=== PATIENT | female | born 1985 | race Caucasian/White ===

== ENCOUNTER → 2016-10-09 | Outpatient (CLI) | payer BC ==
[~2016-10-09] MED LIST: ALBUAER19 INH; BUPR150T47 PO; CHOL2000 PO; ETONMIS VAGRING; LEVO150T PO; TOPI50TA16 PO; ZNTT/150 PO
[2016-10-09 17:32] LABS: BASO % 0.3 %; BASO ABS # 0.02 K/uL (0-0.2); COMPLETE YES; EOS % 0.6 %; IG% 0.2 %; LYMPH % 35.6 %; LYMPH ABS # 2.23 K/uL (1.2-3.4); MEAN CELL VOLUME 96.9 fL (80-100); MEAN CORPUSCULAR HEMOGLOBIN 32.6 pg (25-34); MEAN CORPUSCULAR HGB CONC 33.7 g/dl (32-36); MEAN PLATELET VOLUME 12.8 fL (7.4-10.4); NEUT % 59.3 %; PLATELET COUNT 147 K/uL (130-400); RED BLOOD COUNT 4.23 M/uL (4.2-5.4); WHITE BLOOD COUNT 6.26 K/uL (4.8-10.8)
[2016-10-09 19:30] LABS: LYME DISEASE AB IGG NEG (NEG); LYME DISEASE AB IGM NEG (NEG)
[2016-10-09 19:35] LABS: ALT/SGPT 20 U/L (12-78); AST/SGOT 13 U/L (15-37); BLOOD UREA NITROGEN 17 mg/dl (7-18); BUN/CREATININE RATIO 18.7 (10-20); CALCIUM 8.2 mg/dl (8.5-10.1); CARBON DIOXIDE 26 mmol/L (21-32); CHLORIDE 111 mmol/L (98-107); CREATININE 0.92 mg/dl (0.60-1.20); GLUCOSE 71 mg/dl (70-99); POTASSIUM 3.7 mmol/L (3.5-5.1); SODIUM 142 mmol/L (136-145)
[2016-10-09 19:38] LABS: ALKALINE PHOSPHATASE 56 U/L (45-117); RHEUMATOID FACTOR < 10.0 U/mL (0-15)
[2016-10-09 23:47] LABS: RAPID PLASMA REAGIN NONREACTIVE (NONREACT)
[2016-10-14 02:35] LABS: ANTI-CENTROMERE AB <1.0 NEG AI (<1.0 NEG); ANTI-SS-A <1.0 NEG AI (<1.0 NEG); ANTI-SS-B <1.0 NEG AI (<1.0 NEG); DNA ds CRITHIDIA NEGATIVE (NEGATIVE); Sm Antibody <1.0 NEG AI (<1.0 NEG)
== END | disposition home or self-care (01) ==
LOC: C.LABBFT 11:41
PROVIDERS: ATTEND Psychiatry & Neurology Neurology
DX: M54.12 Radiculopathy, cervical region (principal)

== ENCOUNTER → 2016-10-18 | Outpatient (CLI) | payer BC ==
[~2016-10-18] MED LIST changes: +GADAVIST IV PRN
--- NOTE | 2016-10-18 14:07 | DIAGNOSTIC IMAGING REPORT ---
MRI CERVICAL SPINE COMBO CLINICAL HISTORY: Brachial neuritis. Neck pain. Left arm radiculopathy. TECHNIQUE: Sagittal and axial T1, T2 and STIR images were obtained. Imaging was performed before and after the administration of 8.5 cc of intravenous Gadavist COMPARISON STUDY: No previous studies for comparison. There are no suspicious areas of marrow replacement. No intrinsic cervical cord lesions are visualized. C2-3: There is no evidence of disc bulge or focal herniation. There is no spinal or foraminal stenosis. C3-4: There is a very minimal circumference disc bulge. No focal herniations are visualized. There is no spinal or foraminal stenosis. C4-5: There are no disc bulges or focal herniations. There is no spinal or foraminal stenosis. C5-6 :There are no disc bulges or focal herniations. There is no spinal or foraminal stenosis. C6-7: There is no evidence of disc bulge or focal herniation. There is no evidence of spinal or foraminal stenosis. C7-T1: There is no evidence of disc bulge or focal herniation. There is no evidence of spinal or foraminal stenosis. Postcontrast images reveal no areas of pathologic enhancement IMPRESSION: 1. Very minor C3-4 disc bulge 2. No evidence of spinal or foraminal stenosis 3. No cord lesions identified. No evidence of pathologic enhancement Electronically signed by: River Melgar M.D. 10/18/2016 2:06 PM Dictated Date/Time: 10/18/2016 2:02 PM
--- NOTE | 2016-10-18 14:12 | DIAGNOSTIC IMAGING REPORT ---
MRI OF THE BRAIN WITHOUT AND WITH IV CONTRAST CLINICAL HISTORY: Headache, left arm and finger numbness. History of prior abnormal MRI the brain. Demyelinating disease. COMPARISON STUDY: 10/31/2015 TECHNIQUE: MRI of the brain was performed from the vertex to the skull base utilizing various T1 and T2 weighted sequences. Following the IV administration of 8.5 mL of Gadavist contrast, additional enhanced images were obtained. FINDINGS: Sagittal T1, axial diffusion, proton density and T2 weighted axial, coronal FLAIR, and pre and post axial T1-weighted images were acquired. These were supplemented with post gadolinium coronal T1 weighted images. No intra or extra-axial mass lesions are visualized. Axial diffusion-weighted images reveal no evidence of acute or subacute infarction. There is no evidence of ventricular dilatation. Proton density T2-weighted and FLAIR images reveal a few small foci of increased T2 signal within the white matter. These remain essentially stable There are no abnormal flow voids. There is no evidence of pathologic enhancement. IMPRESSION: 1. No evidence of intracranial mass 2. No evidence of acute or subacute infarction 3. There are few stable nonspecific foci of increased T2 signal within the white matter. 4. No evidence of pathologic enhancement Electronically signed by: River Melgar M.D. 10/18/2016 2:10 PM Dictated Date/Time: 10/18/2016 2:06 PM
== END | disposition home or self-care (01) ==
LOC: C.MRI 11:58
PROVIDERS: ATTEND Psychiatry & Neurology Neurology
DX: R51 Headache (principal); R90.89 Other abnormal findings on diagnostic imaging of central nervous system; G37.9 Demyelinating disease of central nervous system, unspecified; M54.12 Radiculopathy, cervical region

== ENCOUNTER → 2017-03-14 | Outpatient (CLI) | payer BC ==
[~2017-03-14] MED LIST changes: -GADAVIST IV PRN
== END | disposition home or self-care (01) ==
LOC: C.LABSPEC 11:02
PROVIDERS: ATTEND Obstetrics & Gynecology
DX: N89.8 Other specified noninflammatory disorders of vagina (principal); Z12.4 Encounter for screening for malignant neoplasm of cervix

== ENCOUNTER → 2017-03-14 | Outpatient (CLI) | payer BC | END | disposition home or self-care (01) | LOC: C.PAPS 11:43 | PROVIDERS: ATTEND Obstetrics & Gynecology | DX: Z12.4 Encounter for screening for malignant neoplasm of cervix (principal) ==

== ENCOUNTER → 2017-06-09 | Outpatient (CLI) | payer BC | END | disposition home or self-care (01) | LOC: C.LABBFT 14:55 | PROVIDERS: ATTEND Nurse Practitioner | DX: E07.9 Disorder of thyroid, unspecified (principal) ==

== ENCOUNTER → 2017-06-13 | Outpatient (CLI) | payer BC ==
[~2017-06-13] MED LIST changes: +RANI150T85 PO; -ZNTT/150 PO
--- NOTE | 2017-06-13 11:22 | DIAGNOSTIC IMAGING REPORT ---
SOFT TISS HEAD/NECK-THYROID CLINICAL HISTORY: 32 years-old Female with E04.1 Thyroid nodule COMPARISON: Thyroid ultrasound 02/24/2015, cervical spine MR 10/18/2016 TECHNIQUE: Multiple real time sonographic images of the thyroid were obtained accessing ortiz scale appearance and color doppler flow. FINDINGS: MEASUREMENTS: Right lobe: 5.2 x 1.9 x 2.0 cm Left lobe: 5.5 x 1.9 x 2.2 cm Isthmus: 0.4 cm PARENCHYMA: The thyroid parenchymal echotexture is generally homogeneous. NODULES: Hypoechoic solid nodule with somewhat ill-defined margins is again seen within the mid pole left thyroid, 0.8 x 0.8 x 0.7 cm, previously measuring 1.0 x 0.7 x 1.0 cm. No associated calcifications or new nodules identified. IMPRESSION: Unchanged hypoechoic nodule of the mid pole left thyroid measuring up to 0.8 cm. No new nodules are identified. The above report was generated using voice recognition software. It may contain grammatical, syntax or spelling errors. Electronically signed by: Ellis Johnson M.D. 06/13/2017 11:21 AM Dictated Date/Time: 06/13/2017 11:18 AM
== END | disposition home or self-care (01) ==
LOC: C.ULTR 10:35
PROVIDERS: ATTEND Nurse Practitioner
DX: E04.1 Nontoxic single thyroid nodule (principal)

== ENCOUNTER → 2017-08-19 | Outpatient (CLI) | payer BC ==
[2017-08-19 17:50] LABS: HEMATOCRIT 42.5 % (37-47); HEMOGLOBIN 14.3 g/dL (12.0-16.0); MEAN CELL VOLUME 95.5 fL (80-100); MEAN CORPUSCULAR HEMOGLOBIN 32.1 pg (25-34); MEAN CORPUSCULAR HGB CONC 33.6 g/dl (32-36); MEAN PLATELET VOLUME 12.6 fL (7.4-10.4); PLATELET COUNT 145 K/uL (130-400); RED CELL DISTRIBUTION WIDTH CV 13.2 % (11.5-14.5); RED CELL DISTRIBUTION WIDTH SD 46.2 fL (36.4-46.3); WHITE BLOOD COUNT 7.27 K/uL (4.8-10.8)
[2017-08-19 18:15] LABS: ALBUMIN 3.5 gm/dl (3.4-5.0); ALT/SGPT 19 U/L (12-78); BLOOD UREA NITROGEN 21 mg/dl (7-18); CALCIUM 8.7 mg/dl (8.5-10.1); CARBON DIOXIDE 26 mmol/L (21-32); GLUCOSE 84 mg/dl (70-99); POTASSIUM 3.7 mmol/L (3.5-5.1); SODIUM 140 mmol/L (136-145)
[2017-08-19 18:25] LABS: ALKALINE PHOSPHATASE 69 U/L (45-117); AST/SGOT 12 U/L (15-37); TOTAL PROTEIN 7.1 gm/dl (6.4-8.2)
== END | disposition home or self-care (01) ==
LOC: C.LABBFT 13:57
PROVIDERS: ATTEND Physician Assistant Medical
DX: R06.02 Shortness of breath (principal)

== ENCOUNTER → 2017-08-21 | Outpatient (CLI) | payer BC | END | disposition home or self-care (01) | LOC: C.LABBFT 12:49 | PROVIDERS: ATTEND Physician Assistant Medical | DX: R06.02 Shortness of breath (principal) ==

== ENCOUNTER → 2017-09-25 | Outpatient (CLI) | payer BC ==
[~2017-09-25] MED LIST changes: +GADAVIST IV PRN
--- NOTE | 2017-09-25 08:48 | DIAGNOSTIC IMAGING REPORT ---
MRA OF THE CHEST/THORACIC AORTA WITH AND WITHOUT CONTRAST CLINICAL HISTORY: Dilated thoracic aorta. Bicuspid aortic valve. COMPARISON STUDY: Chest CT October 14, 2005. TECHNIQUE: Utilizing a 1.5 Ashley magnet and dedicated coil, multiplanar, multi echo imaging of the chest was performed as per the MRA protocol. Injection of 9 cc of Gadavist IV was uneventful. FINDINGS: This exam is mildly compromised by cardiac motion artifact. The thoracic aorta measures approximately 3.6 cm at the level of the sinuses of Valsalva and 3.8 x 3.7 cm at the level of the main pulmonary artery. Caliber of the thoracic aorta has slightly increased since chest CT of October 14, 2005. The caliber of the aortic arch and descending thoracic aorta is normal. There is no dissection within the thoracic aorta. The size the heart is at the upper limits of normal. There is no pericardial effusion. Proximal great vessels are patent. No enlarged thoracic lymph nodes are identified. Lungs are somewhat assessed by MRI but appear unremarkable. There is no pleural effusion. IMPRESSION: Top normal caliber ascending aorta, measuring 3.8 x 3.7 cm at the level of the main pulmonary artery and approximately 3.6 cm at the level of the sinuses of Valsalva. Slight increase in thoracic aortic diameter since exam of September 24, 2005. No thoracic aortic dissection. Electronically signed by: Alon Marino M.D. 09/25/2017 8:46 AM Dictated Date/Time: 09/25/2017 8:07 AM
== END | disposition home or self-care (01) ==
LOC: C.MRI 07:01
PROVIDERS: ATTEND Internal Medicine Cardiovascular Disease
DX: Q23.1 Congenital insufficiency of aortic valve (principal); R07.9 Chest pain, unspecified

== ENCOUNTER → 2017-10-07 | Outpatient (CLI) | payer BC ==
[~2017-10-07] MED LIST changes: -GADAVIST IV PRN; +OPTIRAY 320 IV PRN
--- NOTE | 2017-10-07 16:44 | DIAGNOSTIC IMAGING REPORT ---
CT ANGIOGRAM OF THE CHEST CLINICAL HISTORY: Left-sided chest pain. Dyspnea on exertion. COMPARISON STUDY: MRI of the chest dated September 25, 2017 TECHNIQUE: Following the IV administration of 94 mL of Optiray-320, CT angiogram of the thorax was performed from the thoracic inlet to the lung bases utilizing the pulmonary embolus protocol. Images are reviewed in the axial, sagittal, and coronal planes. IV contrast was administered without complication. MIP imaging was performed. A dose lowering technique was utilized adhering to the principles of ALARA. CT DOSE: 272.89 mGy.cm FINDINGS: No pathologically enlarged axillary mediastinal or hilar lymph nodes were visualized. There is mild ectasia of the ascending thoracic aorta, unchanged the prior study. There were no pulmonary artery filling defects to indicate acute pulmonary embolism. No pleural effusions are visualized. There was no evidence of focal pulmonary consolidation. IMPRESSION: 1. No evidence of acute pulmonary embolism 2. No evidence of focal pulmonary consolidation 3. Mild ectasia of the ascending thoracic aorta Electronically signed by: River Melgar M.D. 10/07/2017 4:43 PM Dictated Date/Time: 10/07/2017 4:37 PM
== END | disposition home or self-care (01) ==
LOC: C.CTS 16:10
PROVIDERS: ATTEND Nurse Practitioner
DX: R06.09 Other forms of dyspnea (principal); R07.9 Chest pain, unspecified

== ENCOUNTER 2019-05-28 05:40 | Inpatient (IN) ==
--- NOTE | 2019-05-27 18:22 | History and Physical Report ---
DATE OF ADMISSION: 05/28/2019 DATE OF PLANNED SURGERY: 05/28/2019. PREOPERATIVE DIAGNOSES: 1. Intrauterine at 39 and 5/7th weeks. 2. History of previous section, desires repeat. 3. Mild aortic stenosis of bicuspid valve and mild ascending aortic dilation 4. History of PVCs. 5. Asthma. 6. Uninformative DNA on panorama screen. Normal amniocentesis per [facility]. 7. Desires permanent surgical sterilization. HISTORY: The patient is a 2, para 1-0-0-1 with a at 39+ weeks who presents for repeat section. Her previous was delivered in 2007. She delivered a 9 pound baby and had a section for failure to progress/cephalopelvic disproportion after she pushed for 2-1/2 hours. The patient declines trial of labor. She has good movement, no contractions or labor symptoms. This has been complicated by PVCs with palpitations and tachycardia. She had an event monitor with cardiology in February and March showing sinus rhythm and sinus tachycardia without arrhythmia and some occasional PVCs, but no intervention was recommended. The patient was seen at the [facility] for a echo given her abnormalities and the baby's heart was normal. She last saw Dr. Romero in August of this year. The aortic stenosis appears to be mild. With her mild ascending aortic dilation, the recommendation was to avoid strenuous lifting for which the Valsalva maneuver is required. At that time she discontinued her beta brittany in attempt to become and at that time, she was recommended to follow up on an annual basis or sooner for questions or concerns. It appears her last scheduled MRA was in 09/2014 showing the thoracic aorta measuring approximately 3.6 cm at the level of the sinuses of Valsalva and 3.8 x 3.7 cm at the level of the main pulmonary artery. Her last echo was in October of 2018 and was stable compared to one done the year before. It does not appear that the patient has been seen by a metal sprayer production since that time but she did have the evaluation for the PVCs and 30-day Holter monitor. Other than the PVCs, she has not had any cardiac issues in this . She notes some shortness of breath that she attributes to . Her asthma has been stable. although another MRA was recommend in 2 months after her cardiology visit in 09/08, it does not appear to have been performed. ALLERGIES: PROVIGIL TABLETS CAUSING IRRITABILITY AND TACHYCARDIA. OTHER ALLERGIES: ADHESIVE TAPE CAUSING REDNESS TO THE SKIN AND MODAFINIL CAUSING ANXIETY AND TACHYCARDIA. CURRENT MEDICATIONS: Include vitamin D3, iron and vitamin. PAST MEDICAL HISTORY: Consistent with her heart issues as above, GERD, asthma, vitamin D deficiency, goiter with thyroid nodule, obesity, restless leg syndrome, positive EPIFANIO, history of depression on no current meds, history of migraines, history of chickenpox. PAST SURGICAL HISTORY: Winner teeth, , laparoscopic cholecystectomy. SOCIAL HISTORY: The patient denies current tobacco, alcohol or drug use. She lives with the father of the baby and her son. PHYSICAL EXAMINATION: GENERAL: This is a well-developed, well-nourished, obese female in no acute distress. VITAL SIGNS: Blood pressure 110/86, weight 264.9 pounds. CHEST: Clear to auscultation bilaterally. CARDIOVASCULAR: Regular rate and rhythm. ABDOMEN: Soft, , nontender. EXTREMITIES: Show some trace edema but are otherwise benign. LABORATORY DATA: Blood type O positive, antibody negative, rubella immune, RPR nonreactive, hepatitis B negative, HIV negative, chlamydia and gonorrhea negative. Glucose tolerance test x2 normal. She had abnormal panorama but then subsequently had an amniocentesis showing a normal 46 XX karyotype. Declined AFP. Group B strep negative. ASSESSMENT: Fern is a 34-year-old white female 2, para 1-0-0-1, with a history of a previous section for failure to progress and CPD after pushing for 2-1/2 hours in 2007. She presents today at 39 and 6/7th weeks for repeat section. Her history is complicated by a bicuspid aortic valve with mild aortic stenosis and mild thoracic aorta dilation as well as intermittent PVCs with sinus tachycardia on a 30-day Holter monitor. Her cardiac issues of not been an issue in this and she has not been on any medications. Discussed this patient with Dr. Guevara, and he feels she does not have significant increased risk with surgical delivery, and in fact, this is probably in her best interest instead of a vaginal delivery given her history. She had an abnormal panorama but normal 46 XX karyotype on amniocentesis. She presents today for repeat section and desires permanent surgical sterilization. The risks of surgery were discussed with the patient including the risks of anesthesia, bleeding requiring transfusion, infection, poor wound healing, damage to surrounding structures including bowel, bladder, vessels, nerves and ureters with need for further surgery, hospitalization or intervention. We discussed the other risks associated with surgery including heart attack, blood clot, stroke or . Additionally, the patient desires permanent surgical sterilization. We discussed the risks of sterilization including the risk of failure resulting in ectopic and regret. We discussed the other options for control including barriers, hormones, long-term reversible contraception and vasectomy. She understands that this procedure is permanent and declines other methods of control. Consent was reviewed and signed and surgery is planned for 05/28/2019. TAJ
[2019-05-28] MEDS ORDERED: SODIUM CHLORIDE 0.9% 250 ML IV PRN (05:42)
[2019-05-28] MEDS ORDERED: LACTATED RINGER'S 1,000 ML IV SCH ×2 (05:45→06:38)
[2019-05-28] MEDS ORDERED: CITRIC ACID/SODIUM CITRATE 15 ML UDC PO SCH (06:00)
[2019-05-28 06:10] LABS: Basophils # (auto) 0.02 K/uL (0-0.2); Basophils % (auto) 0.2 %; Eosinophils # (auto) 0.21 K/uL (0-0.5); Eosinophils % (auto) 2.4 %; Hematocrit (blood only) 35.4 % (37-47); Hemoglobin 11.6 g/dL (12.0-16.0); Immature Granulocytes # (auto) 0.03 K/uL (0.00-0.02); Immature Granulocytes % (auto) 0.3 %; Lymphocytes # (auto) 2.31 K/uL (1.2-3.4); Lymphocytes % (auto) 25.9 %; Mean Corpuscular Hemoglobin 30.5 pg (25-34); Mean Corpuscular Volume 93.2 fL (80-100); Mean Platelet Volume 12.2 fL (7.4-10.4); Monocytes # (auto) 0.54 K/uL (0.11-0.59); Neutrophils # (auto) 5.82 K/uL (1.4-6.5); Neutrophils % (auto) 65.2 %; Platelet Count 153 K/uL (130-400); RDW Coefficient of Variation 13.2 % (11.5-14.5); White Blood Count 8.93 K/uL (4.8-10.8)
[2019-05-28 06:17] LABS: Mean Corpuscular Hgb Conc 32.8 g/dL (32-36)
[2019-05-28] MEDS ORDERED: MoRPHine SULFATE PF 1 MG/ML 10 ML AMP/VIAL ONE (07:00)
[2019-05-28] MEDS ORDERED: fentaNYL citrate 100 MCG/2 ML VIAL ONE (07:00)
--- NOTE | 2019-05-28 07:09 | Anesthesiology Consultation ---
Date of Service May 28, 2019 Assessment & Plan (1) Encounter for pre-operative examination: Chart Review Chart Review: Acceptable Risk for Surgery and Patient NOT seen in Pre Admission Testing Consults Requested none History Surgery Operation Date: 05/28/19 07:30 Proposed Procedures p Section with - Angella Aguillon MD, FACOG s Post Tubal Ligation in LD - Angella Aguillon MD, FACOG Height/Weight Height: 5 ft 6 in Weight: 117.934 kg Allergies Allergy/AdvReac Type Severity Reaction Status Date / Time modafinil Allergy Intermediate Anxiety, Verified 05/27/19 08:59 tachycardia adhesive tape Allergy Mild REDNESS TO Verified 05/27/19 08:59 SKIN Provigil TABS Allergy Intermediate ANXIETY, Uncoded 05/14/19 10:12 TACHYCARDIA Medications Home Medications Medication Instructions Recorded Confirmed Last Taken prenat.vits,renee,tll-qtnt-clizm 1 tab PO DAILY 01/28/19 05/27/19 Unknown cholecalciferol (vitamin D3) 25 2,000 units PO DAILY cap 02/18/19 05/27/19 Unknown mcg (1,000 unit) capsule ferrous sulfate [iron] 325 mg PO 3XWK 05/14/19 05/27/19 Unknown Active Medications Generic Name Dose Route Start Last Admin Trade Name Freq PRN Reason Stop Dose Admin Lactated Ringer's 1,000 mls @ 125 mls/hr 05/28/19 06:38 05/28/19 07:14 Lr IV 06/27/19 06:37 125 mls/hr .Q8H TREMAYNE Administration Cefazolin Sodium 65 mls @ 130 mls/hr 05/29/19 06:00 05/28/19 07:14 Ancef 3000mg IV 05/30/19 05:59 130 mls/hr PREOP TREMAYNE Administration NPO Date Last Intake of Fluids: 05/27/19 Time Last Intake of Fluids: 22:00 Date Last Intake of Solids: 05/27/19 Time Last Intake of Solids: 22:00 Past Medical History Medical History Aortic stenosis Bicuspid aortic valve Brachial neuritis LEFT SIDE Cardiac murmur GERD (gastroesophageal reflux disease) History of anxiety History of asthma NO ACTIVE INHALER Hx of pancreatitis Kidney stones Migraine with aura Rectal bleeding ? HEMORRHOID (DR. ROMAN AWARE) Temporomandibular joint disorder Thyroid nodule "SCARRING" BEING MONITORED Exercise / Class Metabolic Activity II 4-5 Yardwork/Stairs/Walk up hill Past Family History Family History Mother Deep vein thrombosis Hypertension Asthma Grandmother (Paternal) Diabetes Heart disease Hypertension Grandmother (Maternal) Breast cancer Grandfather (Paternal) Rheumatoid arthritis Myocardial infarction Lung cancer Father Diabetes Aunt Diabetes Past Surgical History Surgical History History of cholecystectomy History of tooth extraction WISDOM TEETH AND TOOTH #19 S/P section X 1 Past Anesthesia History No Hx of Anesthesia Complications and No Family Hx of Anesthesia Complications History of PONV No Hx of PONV and No Hx of Motion Sickness Social History Smoking Status: Former smoker tobacco type: cigarettes Do You Dip or Chew Tobacco: No Smoking End Date: 11 YEARS AGO Hx Alcohol Use: No Hx Substance Use: No substance use type: does not use Physical Exam Vital Signs Last Vital Signs Temp 36.6 C 05/28/19 06:04 Pulse 81 05/28/19 07:17 Resp 18 05/28/19 06:04 BP 123/82 05/28/19 07:16 Pulse Ox 98 05/28/19 07:17 Testing Laboratory Results 05/28/19 05:56 Blood Type O Positive 05/28/19 05:56 Antibody Screen POSITIVE A 05/28/19 05:56
--- NOTE | 2019-05-28 07:19 | History & Physical Bridge Note ---
Date of Service May 28, 2019 History & Physical Bridge Note I have examined the patient, reviewed the History & Physical and in the interval since the performance of the History & Physical I have noted the following changes of clinical significance: no changes noted
[2019-05-28] MEDS ORDERED: OXYTOCIN 10 UNITS/ML VIAL ONE (07:51)
[2019-05-28] MEDS ORDERED: PHENYLEPHRINE HCL 10 MG/ML VIAL ONE (07:51)
[2019-05-28] MEDS ORDERED: PHENYLEPHRINE 100MCG/ML 5ML SYR ONE (07:51)
[2019-05-28] MEDS ORDERED: ONDANSETRON INJ 2 MG/ML 2 ML VIAL ONE (07:51)
[2019-05-28] MEDS ORDERED: NALOXONE HCL 1 MG in SODIUM CHLORIDE 0.9% 1000ML 1,000 ML IV PRN (08:01)
[2019-05-28] MEDS ORDERED: NALOXONE HCL 0.08 MG in SYRINGE 1.8 ML IV PRN (08:01)
[2019-05-28] MEDS ORDERED: ePHEDrine sulfate 50 MG/ML AMP IV PRN (08:01)
[2019-05-28] MEDS ORDERED: LACTATED RINGER'S 500 ML IV PRN (08:01)
[2019-05-28] MEDS ORDERED: ONDANSETRON INJ 2 MG/ML 2 ML VIAL IV PRN (08:01)
[2019-05-28] MEDS ORDERED: DiphenhydrAMINE HCL 50 MG/ML VIAL IV PRN (08:01)
[2019-05-28] MEDS ORDERED: MoRPHine SULFATE PF 1 MG/ML 10 ML AMP/VIAL INT SPINAL ONE (08:01)
[2019-05-28] MEDS ORDERED: MoRPHine SULFATE 2 MG/ML CARP IV PRN (08:01)
[2019-05-28] MEDS ORDERED: NALBUPHINE HCL INJ 10 MG/ML AMP IV PRN (08:01)
[2019-05-28] MEDS ORDERED: NALOXONE HCL 0.4 MG/1 ML VIAL/CARP IV PRN (08:01)
[2019-05-28] MEDS ORDERED: HYDROmorphone INJ 0.5 MG/0.5 ML SYR IV PRN (08:01)
[2019-05-28] MEDS ORDERED: DC INTRASPINAL MORPHINE SCH (08:15)
[2019-05-28] MEDS ORDERED: NO NARCOTICS OR SEDATIVES SCH (08:15)
[2019-05-28] MEDS ORDERED: SODIUM CHLORIDE 0.9% 1000ML 1,000 ML IV SCH (08:15)
--- NOTE | 2019-05-28 08:32 | Post Operative Brief Note ---
PG Immediate Post Op with CF Date of Surgery May 28, 2019 Pre & Post Diagnosis Operation Date: 05/28/19 07:30 Pre-Op Diagnosis: History of Section, Desires sterilization Post-Op Diagnosis: Same; Delivery of a live female child at 0755 I identified the patient and participated in the time-out.: Yes Procedure Operation Date: 05/28/19 07:30 repeat lower transverse Bilateral modified tonya tubal ligation Surgeon Angella Aguillon MD, FACOG Manager Location Dr. Angulo, PGY1, Katia Gross, MS 2 Estimated Blood Loss 600 Findings Consistent with Post-Op Diagnosis Specimens Specimen Description: A. placenta-hold B.portions of right and left fallopian tubes C. cord blood Drains Lee Catheter
--- NOTE | 2019-05-28 08:47 | Anesthesiology Progress Note ---
Date of Service May 28, 2019 Anesthesia Post Procedure Vital Signs Vital Signs: Temp Pulse Resp BP Pulse Ox 05/28/19 08:43 92 H 95 05/28/19 08:39 78 121/66 05/28/19 08:38 85 96 05/28/19 07:17 81 98 05/28/19 07:16 74 123/82 05/28/19 06:04 36.6 C 18 05/28/19 05:52 82 121/83 05/28/19 05:51 36.6 C 18 Transfer of Care Handoff Completed per policy Notes Mental Status: alert / awake / arousable and participated in evaluation Patient Amnestic to Procedure: No Nausea / Vomiting: adequately controlled Pain: adequately controlled Airway Patency, RR, SpO2: stable & adequate BP & HR: stable & adequate Hydration State: stable & adequate Neuraxial Anesthesia: was administered and sensory block is resolving Anesthetic Complications: no major complications apparent and Pt Satisfied with anesthetic care
--- NOTE | 2019-05-28 09:06 | Operative Report ---
DATE OF OPERATION: 05/28/2019 PREOPERATIVE DIAGNOSES: 1. Intrauterine at 39 and 6/7 weeks. 2. History of previous section, desires repeat. 3. Desires permanent surgical sterilization. 4. Mild aortic stenosis and mild dilation of the ascending thoracic aorta. POSTOPERATIVE DIAGNOSES: 1. Intrauterine at 39 and 6/7 weeks. 2. History of previous section, desires repeat. 3. Desires permanent surgical sterilization. 4. Mild aortic stenosis and mild dilation of the ascending thoracic aorta. PROCEDURE: 1. Repeat lower transverse section. 2. Bilateral modified [place] tubal ligation. SURGEON: Angella Aguillon MD GRIT BLASTER: González Angulo, PGY1 and Katia Gross, MS2. ANESTHESIA: Spinal. ESTIMATED BLOOD LOSS: 600 mL. FLUIDS: 1250 mL. URINE OUTPUT: 100 mL of concentrated urine drained from the bladder at the end of the procedure. INDICATIONS: Fern is a 34-year-old white female 2, para 1-0-0-1, whose previous delivery was in 2007. This was a section for CPD and failure to progress after pushing for 2-1/2 hours to deliver a 9+ pound baby. The patient does not desire trial of labor and in fact given her mild aortic stenosis, this is probably in her better interest to proceed with repeat section. Additionally, the patient desires tubal ligation, has been counseled about her options including long-term reversible contraceptive options and vasectomy. She understands that this is permanent and that she may have regret. FINDINGS: Viable female in cephalic presentation with a loose nuchal body cord. Apgars were 8 and 9, clear fluid on rupture of the amniotic sac. Normal uterus, tubes, and ovaries were noted bilaterally. COMPLICATIONS: None. DRAINS: Lee. DISPOSITION: To recovery room in stable condition. DESCRIPTION OF PROCEDURE: The patient was taken to the operating room where she was identified verbally and by bracelet. She was seated on the operating table where spinal anesthetic was placed by anesthesia without difficulty. She was then placed in dorsal supine position with leftward tilt. A Lee catheter was placed sterilely and she was prepped and draped in normal sterile fashion. Her anesthetic was tested and found to be adequate. A time-out was held identifying correct patient, procedure, positioning, preoperative antibiotic. There were no concerns. A Pfannenstiel skin incision was made with a knife and taken down to the underlying layer of fascia with the knife. Bleeding was attended to with Bovie electrocautery. The fascia was incised in the midline with the knife and taken out laterally with scissors. Superior edge of the fascial incision was grasped, elevated and the underlying layer of rectus muscle was taken off bluntly and with scissors. In a similar fashion, the inferior edge of the fascial incision was grasped, elevated and the underlying layer of rectus muscle was taken off bluntly and with scissors. The muscles were well reapproximated. The midline was incised with the knife and then bluntly. The muscles were . The peritoneum was then identified, grasped with snaps bilaterally and entered sharply with scissors. There were no adhesions noted under the peritoneum. The peritoneum was then taken superiorly and inferiorly with good visualization of the bladder. The incision was stretched, the bladder blade was placed. The vesicouterine peritoneum was identified, grasped with a snap and entered with scissors and taken out laterally with scissors. The bladder blade was created digitally. The hysterotomy incision was scored with the knife. It was entered with the labelling machine operator's fingers and stretched with the labelling machine operator's fingers. The amniotic sac was then entered for clear fluid. The labelling machine operator's hand was placed into the uterus and attempts to deliver the head through the hysterotomy incision were tight. The labelling machine operator's hand was removed and a vacuum was called for but then we found that with just some pressure, the head was delivered through the hysterotomy incision. The nose and mouth were bulb suctioned. There was a loose nuchal/body cord which the baby was delivered through. The baby was immediately vigorous and crying after delivery. The nose and mouth were again bulb suctioned. The cord was clamped and cut and the was handed off to waiting box liner for drying and attention. Cord blood and segment were obtained. Placenta was manually extracted. The uterus was exteriorized and cleared of all clot and debris with moistened laparotomy sponges. Hysterotomy incision was repaired in 2 layers, the first in a running locked layer of 0 Vicryl, the second in an imbricating layer of 0 Vicryl. Attention was then turned to the tubes for sterilization. First on the right and then on the left, the tube was grabbed with a Coffey. Using 2-0 plain gut suture, a knuckle of tube was tied. A 2-0 plain gut was placed below this. The tube was excised with scissors and the base was attended to with Bovie electrocautery. This was repeated exactly the same way on the left side. Tubal stumps were noted to be hemostatic. The hysterotomy incision was again inspected. Some oozing at the midline was attended to with 1 [id number] suture of 0 Vicryl and then hemostasis was noted to be good. The uterus was reanteriorized. The bladder blade was replaced. The hysterotomy incision was again inspected and found to be intact. The tubal stumps were hemostatic and intact. The rectus muscles were reapproximated in the midline with several interrupted sutures of 0 Vicryl. The fascia was then approximated with 0 Vicryl starting and the corners are meeting in the midline. The subcuticular tissue was copiously irrigated and was hemostatic. Three horizontal mattress sutures of 2-0 plain gut were used to close the space and the skin was then closed with 4-0 Vicryl in subcuticular fashion. All sponge, lap and needle counts were correct x2. The patient tolerated the procedure well and was taken to recovery room in stable condition. I attest to the content of the Intraoperative Record and any orders documented therein. Any exception s are noted below.
[2019-05-28] MEDS ORDERED: HYDROCORTISONE ACETATE 25 MG SUPP PR PRN (10:23)
[2019-05-28] MEDS ORDERED: BENZOCAINE 20% AER SPR 82.5 GM CAN EXT PRN (10:23)
[2019-05-28] MEDS ORDERED: SUPERCREAM 0.870% 15 GM JAR EXT PRN (10:23)
[2019-05-28] MEDS ORDERED: MAGNESIUM HYDROXIDE SUSP 30 ML UDC PO PRN (10:23)
[2019-05-28] MEDS ORDERED: DIPHTHERIA/TETANUS/PERTUSSIS 0.5 ML SYR/VIAL IM ONE (10:23)
[2019-05-28] MEDS ORDERED: SENNA 8.6 MG TAB PO PRN (10:23)
[2019-05-28] MEDS: OXYTOCIN 20 UNITS in LACTATED RINGER'S 1,000 ML IV SCH ×2 (11:30→19:01)
[2019-05-28] MEDS: KETOROLAC 30 MG/ML VIAL IV PRN ×2 (11:41→17:55)
[2019-05-28] MEDS: SIMETHICONE 80 MG CHEW PO SCH ×3 (12:53→20:37)
[2019-05-28] MEDS: DOCUSATE SODIUM 100 MG CAP PO SCH (20:37)
[2019-05-29] MEDS: KETOROLAC 30 MG/ML VIAL IV PRN (00:19)
[2019-05-29] MEDS ORDERED: DiphenhydrAMINE HCL 50 MG/ML VIAL IV PRN (02:01)
[2019-05-29] MEDS ORDERED: KETOROLAC 30 MG/ML VIAL IV PRN (02:01)
[2019-05-29] MEDS ORDERED: MEPERIDINE HCL 50 MG/ML CARP IV PRN (02:01)
[2019-05-29] MEDS: IBUPROFEN 600 MG TAB PO PRN ×3 (05:56→21:45)
[2019-05-29] MEDS ORDERED: CEFAZOLIN 3000MG 65 ML IV SCH (06:00)
--- NOTE | 2019-05-29 06:20 | Obstetrical Progress Note ---
Date of Service <González Angulo MD - Last Filed: 05/29/19 06:22> May 29, 2019 Assessment & Plan <González Angulo MD - Last Filed: 05/29/19 06:22> (1) : RLTCS POD#1 doing well, ambulating well, tolerating foods continue routine care until discharge after discharge will have follow-up in 6 weeks Subjective <González Angulo MD - Last Filed: 05/29/19 06:22> Ms. Glover is a 34 y/o female ; POD #1 following delivery at 39+ weeks; doing well this morning; having minimal abdominal cramping/pain; voiding well; tolerating meals overnight; and able to ambulate some Review of Systems Constitutional: denies fever; chills; sweats; headache Respiratory: denies shortness of breath, difficulty breathing Cardiac: denies chest pain; palpitations; chest pressure Breast: denies breast pain : denies dysuria Physical Exam <González Angulo MD - Last Filed: 05/29/19 06:22> General: alert; oriented; no acute distress Cardiac: RRR; no m/g/r Respiratory: CTAB a/p; no wheezes/rales/rhonchi; no increased work of breathing; symmetrical chest rise; no respiratory distress Abdomen: soft; NT/ND; bowel sounds positive Uterus: uterine fundus firm; palpable 2cm below umbilicus Lower extrem: no lower extremity edema or swelling; no deep calf pain; Angelica's sign negative b/l Results & Data <González Angulo MD - Last Filed: 05/29/19 06:22> Vital Signs (Past 12 Hours) Vital Signs Temp Pulse Resp BP Pulse Ox 05/29/19 04:10 36.6 C 80 18 99/63 L 97 05/29/19 02:05 16 95 05/29/19 01:20 18 96 05/29/19 00:20 18 97 05/28/19 23:30 36.5 C 80 18 96/63 L 96 05/28/19 19:35 36.7 C 64 18 99/59 L 97 05/28/19 19:00 16 97 Laboratory Results 05/28/19 Range/Units 05:56 Blood Type O Positive Antibody Screen POSITIVE A Antibody Identification Anti-E Antibody ID Comment Antigen Identification E Antigen - NEGATIVE Crossmatch See Detail Medications Administered Current Inpatient Medications Benzocaine (Dermoplast Pain Relieving [place]) 1 appln EXT UD PRN PRN Reason: use on skin as needed Stop: 06/27/19 10:22 Bisacodyl (Dulcolax) 5 mg PO 1999 [facility] Stop: 05/29/19 20:01 Cocaine HCl (Supercream 0.870%) 1 gm EXT UD PRN PRN Reason: hemmorrhoidal inflammation Stop: 06/11/19 10:22 Diphenhydramine HCl (Benadryl Capsule) 25 mg PO QID PRN PRN Reason: Itching Stop: 06/28/19 02:00 Diphenhydramine HCl (Benadryl) 25 mg IV QID PRN PRN Reason: Itching Stop: 06/28/19 02:00 Docusate Sodium (Colace) 100 mg PO DAILY@, [facility] Stop: 06/27/19 20:59 Last Admin: 05/28/19 20:37 Dose: 100 mg Documented by: Ferrous Sulfate (Feosol) 325 mg PO DAILY@08 [facility] Stop: 06/28/19 07:59 Hydrocortisone (Anusol Hc) 25 mg DC BID PRN PRN Reason: Hemorrhoids Stop: 06/27/19 10:22 Ibuprofen (Motrin) 600 mg PO Q4H PRN PRN Reason: Pain Stop: 06/27/19 10:22 Last Admin: 05/29/19 05:56 Dose: 600 mg Documented by: Ketorolac Tromethamine (Toradol) 30 mg IV Q6H PRN PRN Reason: Pain Stop: 06/03/19 02:00 Magnesium Hydroxide (Milk Of Magnesia) 30 ml PO HS PRN PRN Reason: Constipation Stop: 06/27/19 10:22 Meperidine HCl (Demerol) 50 - 75 mg IV Q4H PRN PRN Reason: Pain Stop: 06/12/19 02:00 Oxycodone/Acetaminophen (Percocet 5mg/325mg) 1 - 2 tab PO Q4H PRN PRN Reason: Pain Stop: 06/12/19 02:00 Prenat Multivit/Expander/Iron/Folic Ac ( Vitamin) 1 tab PO DAILY@08 [facility] Stop: 06/28/19 07:59 Sennosides (Senokot) 17.2 mg PO HS PRN PRN Reason: Constipation Stop: 06/27/19 10:22 Simethicone (Mylicon) 80 mg PO DAILY@08,13,17,21 [facility] Stop: 06/27/19 12:59 Last Admin: 05/28/19 20:37 Dose: 80 mg Documented by: <Josie Rabago MD - Last Filed: 05/29/19 07:11> Co-Signing Physician Notes I have reviewed the resident's note and examined the patient myself, and agree with the note above. Resident Activity Tracking <González Angulo MD - Last Filed: 05/29/19 06:22> Resident Involvement: Resident Care Provided Care Provided: OB Delivery
[2019-05-29 07:31] LABS: Basophils # (auto) 0.02 K/uL (0-0.2); Basophils % (auto) 0.2 %; Eosinophils % (auto) 1.8 %; Hematocrit (blood only) 29.5 % (37-47); Hemoglobin 9.6 g/dL (12.0-16.0); Immature Granulocytes # (auto) 0.02 K/uL (0.00-0.02); Immature Granulocytes % (auto) 0.2 %; Lymphocytes # (auto) 1.94 K/uL (1.2-3.4); Lymphocytes % (auto) 17.5 %; Mean Corpuscular Hemoglobin 30.5 pg (25-34); Mean Corpuscular Hgb Conc 32.5 g/dL (32-36); Mean Corpuscular Volume 93.7 fL (80-100); Mean Platelet Volume 12.3 fL (7.4-10.4); Monocytes # (auto) 0.47 K/uL (0.11-0.59); Monocytes % (auto) 4.2 %; Neutrophils # (auto) 8.46 K/uL (1.4-6.5); Neutrophils % (auto) 76.1 %; Platelet Count 119 K/uL (130-400); Platelet Estimate Normal (Normal); RDW Coefficient of Variation 13.4 % (11.5-14.5); RDW Standard Deviation 45.5 fL (36.4-46.3); Red Blood Count 3.15 M/uL (4.2-5.4); White Blood Count 11.11 K/uL (4.8-10.8)
--- NOTE | 2019-05-29 08:33 | Anesthesiology Progress Note ---
Date of Service May 29, 2019 Anesthesia Post Procedure Vital Signs Vital Signs: Temp Pulse Pulse Pulse Resp BP BP 05/29/19 07:45 36.8 C 73 18 05/29/19 04:10 36.6 C 80 18 99/63 L 05/29/19 02:05 16 05/29/19 01:20 18 05/29/19 00:20 18 05/28/19 23:30 36.5 C 80 18 96/63 L 05/28/19 19:35 36.7 C 64 18 99/59 L 05/28/19 19:00 16 05/28/19 18:02 16 05/28/19 17:00 18 05/28/19 16:35 20 05/28/19 15:50 36.4 C L 66 18 103/69 05/28/19 15:00 18 05/28/19 14:00 20 05/28/19 13:00 18 05/28/19 11:50 36.3 C L 68 18 111/62 05/28/19 11:36 79 05/28/19 11:35 72 111/62 05/28/19 11:33 70 05/28/19 11:29 82 108/65 05/28/19 11:28 85 05/28/19 11:27 79 05/28/19 11:23 65 05/28/19 11:19 75 113/67 05/28/19 11:18 70 05/28/19 11:13 68 05/28/19 11:09 68 114/70 05/28/19 11:08 69 05/28/19 11:07 78 05/28/19 11:03 73 05/28/19 10:59 80 108/66 05/28/19 10:58 74 05/28/19 10:53 61 05/28/19 10:49 59 L 111/69 05/28/19 10:48 60 05/28/19 10:43 68 05/28/19 10:40 18 05/28/19 10:39 76 120/86 05/28/19 10:38 79 05/28/19 10:33 78 05/28/19 10:29 71 110/81 05/28/19 10:28 75 05/28/19 10:23 77 05/28/19 10:19 81 111/62 05/28/19 10:18 79 05/28/19 10:13 72 05/28/19 10:10 18 05/28/19 10:09 82 118/63 05/28/19 10:08 77 05/28/19 10:03 77 05/28/19 09:59 82 132/69 05/28/19 09:58 82 05/28/19 09:55 83 05/28/19 09:53 87 05/28/19 09:49 91 H 136/67 05/28/19 09:48 89 05/28/19 09:43 92 H 05/28/19 09:40 18 05/28/19 09:39 74 122/58 L 05/28/19 09:38 83 05/28/19 09:33 89 18 05/28/19 09:29 77 108/56 L 05/28/19 09:28 83 05/28/19 09:23 85 05/28/19 09:20 18 05/28/19 09:19 83 115/61 05/28/19 09:18 127 H 05/28/19 09:17 96 H 05/28/19 09:13 87 05/28/19 09:10 18 05/28/19 09:09 92 H 122/71 05/28/19 09:08 90 05/28/19 09:03 99 H 05/28/19 09:00 18 05/28/19 08:59 96 H 122/95 05/28/19 08:58 95 H 05/28/19 08:53 97 H 05/28/19 08:50 18 05/28/19 08:48 93 H 05/28/19 08:43 92 H 05/28/19 08:40 36.4 C L 18 05/28/19 08:39 78 121/66 05/28/19 08:38 85 BP Pulse Ox Pulse Ox 05/29/19 07:45 103/65 97 05/29/19 04:10 97 05/29/19 02:05 95 05/29/19 01:20 96 05/29/19 00:20 97 05/28/19 23:30 96 05/28/19 19:35 97 05/28/19 19:00 97 05/28/19 18:02 99 05/28/19 17:00 98 05/28/19 16:35 98 05/28/19 15:50 97 05/28/19 15:00 98 05/28/19 14:00 99 05/28/19 13:00 100 05/28/19 11:50 99 99 05/28/19 11:36 94 05/28/19 11:35 05/28/19 11:33 100 05/28/19 11:29 05/28/19 11:28 98 05/28/19 11:27 91 05/28/19 11:23 99 05/28/19 11:19 05/28/19 11:18 99 05/28/19 11:13 99 05/28/19 11:09 05/28/19 11:08 100 05/28/19 11:07 91 05/28/19 11:03 100 05/28/19 10:59 05/28/19 10:58 97 05/28/19 10:53 100 05/28/19 10:49 05/28/19 10:48 100 05/28/19 10:43 100 05/28/19 10:40 05/28/19 10:39 05/28/19 10:38 89 L 05/28/19 10:33 97 05/28/19 10:29 05/28/19 10:28 98 05/28/19 10:23 100 05/28/19 10:19 92 05/28/19 10:18 100 05/28/19 10:13 100 05/28/19 10:10 05/28/19 10:09 91 05/28/19 10:08 99 05/28/19 10:03 98 05/28/19 09:59 05/28/19 09:58 100 05/28/19 09:55 90 05/28/19 09:53 100 05/28/19 09:49 05/28/19 09:48 100 05/28/19 09:43 100 05/28/19 09:40 05/28/19 09:39 05/28/19 09:38 100 05/28/19 09:33 99 05/28/19 09:29 05/28/19 09:28 99 05/28/19 09:23 99 05/28/19 09:20 05/28/19 09:19 05/28/19 09:18 95 05/28/19 09:17 91 05/28/19 09:13 97 05/28/19 09:10 05/28/19 09:09 05/28/19 09:08 97 05/28/19 09:03 98 05/28/19 09:00 05/28/19 08:59 05/28/19 08:58 97 05/28/19 08:53 99 05/28/19 08:50 05/28/19 08:48 97 05/28/19 08:43 95 05/28/19 08:40 05/28/19 08:39 05/28/19 08:38 96 Pain Intensity Abdomen: Pain Intensity: 2 Transfer of Care Handoff Completed per policy Notes Mental Status: alert / awake / arousable Patient Amnestic to Procedure: Yes Nausea / Vomiting: adequately controlled Pain: adequately controlled Airway Patency, RR, SpO2: stable & adequate BP & HR: stable & adequate Hydration State: stable & adequate Neuraxial Anesthesia: was administered and sensory block is resolving Anesthetic Complications: no major complications apparent and Pt Satisfied with anesthetic care
[2019-05-29] MEDS ORDERED: ACETAMINOPHEN 325 MG TAB PO PRN (08:34)
[2019-05-29] MEDS: SIMETHICONE 80 MG CHEW PO SCH ×4 (08:47→20:12)
[2019-05-29] MEDS: FERROUS SULFATE 325 MG TAB PO SCH (08:47)
[2019-05-29] MEDS: DOCUSATE SODIUM 100 MG CAP PO SCH ×2 (08:47→20:13)
[2019-05-29] MEDS: PRENATAL VITAMIN 1 TAB PO SCH (08:47)
[2019-05-29] MEDS: OXYCODONE/ACETAMINOPHEN 5mg/325mg TAB PO PRN ×2 (14:49→20:13)
[2019-05-29] MEDS ORDERED: bisacodyL 5 MG TABEC PO SCH (20:00)
[2019-05-30] MEDS: OXYCODONE/ACETAMINOPHEN 5mg/325mg TAB PO PRN ×2 (06:19→10:33)
[2019-05-30] MEDS: IBUPROFEN 600 MG TAB PO PRN ×2 (06:19→10:32)
[2019-05-30 06:24] LABS: Hemoglobin 9.9 g/dL (12.0-16.0)
[2019-05-30] MEDS: FERROUS SULFATE 325 MG TAB PO SCH (08:55)
[2019-05-30] MEDS: SIMETHICONE 80 MG CHEW PO SCH (08:55)
[2019-05-30] MEDS: DOCUSATE SODIUM 100 MG CAP PO SCH (08:55)
[2019-05-30] MEDS: PRENATAL VITAMIN 1 TAB PO SCH (08:55)
--- NOTE | 2019-05-30 09:20 | Obstetrical Progress Note ---
Date of Service May 30, 2019 Assessment & Plan (1) Aortic stenosis: Patient to notify her veterinary surgery technician on Friday to let them know she has delivered and see what f/u she needs. If she has cp/sob, she is to call them immediately. When I spoke to cards prior to surgery, they did not indicate she needed any testing prior to d/c if all went well. (2) delivery delivered: Plan d/c home. INstructions given. f/u in office in 6 weeks. Day #:: 2 Subjective Ambulation: ambulating normally Voiding: no voiding problems Passing Gas:: Yes Diet Tolerance:: regular diet (no n/v) Lochia:: Small Feeding Type:: breast feeding Patient feels well. Denies cp/sob. ambulating in the [place] this am. Desires d/c. Physical Exam Constitutional WD/WN, vitals as above Respiratory normal respiratory effort, lungs clear to auscultation Cardiovascular rrr, murmur appreciated Gastrointestinal (Abdomen) soft, nt, nd ff/nt at u inc--c/d/i Psychiatric A+Ox3, euthymic affect Results & Data Vital Signs (Past 12 Hours) Vital Signs Temp Pulse Resp BP Pulse Ox 05/30/19 00:30 36.7 C 76 18 121/72 97
--- NOTE | 2019-06-02 10:50 | Discharge Summary ---
ADMIT DIAGNOSES: 1. Intrauterine at 39 and 5/7th weeks. 2. History of previous section, desires repeat. 3. Mild aortic stenosis with bicuspid aortic valve and mild ascending aortic dilation. 4. History of PVCs. 5. Asthma. 6. Uninformative DNA on Panorama screen. Normal amniocentesis per [facility]. 7. Desires permanent surgical sterilization. DISCHARGE DIAGNOSES: 1. Intrauterine at 39 and 5/7th weeks. 2. History of previous section, desires repeat. 3. Mild aortic stenosis with bicuspid aortic valve and mild ascending aortic dilation. 4. History of PVCs. 5. Asthma. 6. Uninformative DNA on Panorama screen. Normal amniocentesis per [facility]. 7. Desires permanent surgical sterilization. PROCEDURES: Repeat lower transverse section with bilateral Onofre tubal ligation. HISTORY OF PRESENT ILLNESS: The patient is a 2, para 1-0-0-1 with a at 39+ weeks who presents for repeat section. Her previous was delivered in 2007 and she was delivered of a 9-pound baby having section for failure to progress/cephalopelvic disproportion after she pushed for 2-1/2 hours. The patient's declines trial of labor. She has good movement, no contractions or labor symptoms. The has been complicated by PVCs with palpitations and tachycardia. She had an event monitor with Cardiology in February and March showing normal sinus rhythm with sinus tachycardia and no arrhythmia and occasional PVCs. No intervention was recommended. The patient was seen at [facility] for echo which was normal. The patient last saw Dr. Holguin in August of this year. Aortic stenosis appears to be mild. With her mild ascending aortic dilation, recommendation was to avoid strenuous lifting for which the Valsalva maneuver is required, so repeat section is likely in this patient's best interest. At the time of that visit, she discontinued her beta-brittany in attempt to become . She was recommended to follow up on an annual basis or sooner for questions or concerns. It appears her last scheduled MRI was 09/2014 showing a thoracic aorta measuring 3.6 cm at the level of the sinuses of Valsalva and 3.8 x 3.7 cm at the level of the main pulmonary artery. Her last echo was in 10/2018 and was stable compared to one done the year before. It does not appear that the patient has been seen by Cardiology since that time other than for evaluation and Holter monitor. She notes some shortness of breath that she attributes to general condition. Her asthma has been stable. Although another MRI was recommended 2 months after a Cardiology visit on 08/2018, it does not appear to have been performed. Consultation with Cardiology the night before her section revealed no need for any further intervention prior to surgery. For the rest of the patient's detailed history and physical, see her dictated history and physical. ASSESSMENT: The patient is a 34-year-old white female 2, para 1-0-0-1 with history of previous section for failure to progress and CPD after pushing for 2-1/2 hours in 2007. She presents today at 39 and ____ weeks for repeat section. Her history is complicated by a bicuspid aortic valve with mild aortic stenosis and mild thoracic aortic dilation as well as intermittent PVCs and sinus tachycardia on a 30-day Holter monitor. Her cardiac issues have not been of concern in this and she has not been on any medications. She had an abnormal Panorama, but a normal 46 XX karyotype on amniocentesis. She also desires permanent surgical sterilization. HOSPITAL COURSE: The patient was admitted and underwent a repeat lower transverse section with modified bilateral [place] tubal ligation without difficulty. Estimated blood loss was 600 mL. She delivered a viable female infant in cephalic presentation with a loose nuchal/body cord. Apgars were 8 and 9, clear fluid noted on rupture of the amniotic sac. Normal uterus, tubes and ovaries were noted bilaterally. The patient's postoperative course was uncomplicated. She tolerated a regular diet, ambulated without difficulty, voided after the removal of her Lee catheter. She remained asymptomatic from a cardiac standpoint. Her discharge H and H was 9.9 and 30.0. She was discharged home on postoperative day #2. She was instructed to call the Cardiology office as soon as it opens on Friday to schedule an appointment for followup in the office. She was instructed to call if she had any chest pain or shortness of breath or concerns.
== END 2019-05-30 13:10 | disposition home or self-care (01) | DRG 783 ==
LOC: 4S1 05:40 → EDSTATUS 07:30 → 4N 11:50 → 4S2 05-29 14:30